=== PATIENT | male | born 1965 | race Caucasian/White ===

== ENCOUNTER 2016-11-24 05:34 | Day surgery (SDC) | payer OTHER ==
[2016-11-24] VITALS (12 sets, daily range): BP systolic 96–131; BP diastolic 62–90; PULSE 98–114; RESP 11–19; O2SAT 92–99
[~2016-11-24] VITALS: Ht 185.4 cm; Wt 96.8 kg
[~2016-11-24 05:34] MED LIST: AMIL5TAB2 PO; FINA5TAB9 PO; HYG25 PO; HYOS0.1216 PO; LIT150 PO; METO25TA6 PO; TAMS0.4C98 PO
[2016-11-24] MEDS ORDERED: Glycopyrrolate 0.2 mg/mL 5 mL Inj ONE (05:35)
[2016-11-24] MEDS ORDERED: Ondansetron 2 mg/mL 2 mL Inj ONE (05:35)
[2016-11-24] MEDS ORDERED: Neostigmine 1 mg/mL 5 mL Inj ONE (05:35)
[2016-11-24] MEDS ORDERED: MetoCLOpramide 5 mg/mL 2 mL Inj ONE (05:35)
[2016-11-24] MEDS ORDERED: Dexamethasone 4 mg/mL Inj ONE (05:35)
[2016-11-24] MEDS: Lactated Ringer's 1,000 ML IV SCH ×3 (05:41→08:41)
[2016-11-24] MEDS ORDERED: KLO1T PO (05:53)
[2016-11-24] MEDS ORDERED: Levofloxacin 500 mg/100 mL D5W IV ONE (06:00)
[2016-11-24] MEDS ORDERED: Lactated Ringer's 1,000 ML IV SCH (07:53)
[2016-11-24] MEDS ORDERED: Lactated Ringer's 500 ML IV PRN (07:53)
--- NOTE | 2016-11-24 07:53 | PCM.HPANE ---
Patient Data Surgeon Admitting Provider: Attending Provider:Adriana Bacon MD Primary Care Physician:Aakash Weinstein DO Other Provider:[facility] Reason for Visit Urinary Retention Ht/WT & BMI Height (Feet): 6 Height (Inches): 1.00 Weight (Kilograms): 96.8 Body Mass Index 28.00 Allergies Coded Allergies: bupropion (Verified Adverse Reaction, Intermediate, made depression sx worse, 08/09/16) Past Anesthesia History Anesthesia History: Denies:: Abnormal Airway, Anesthesia Reactions, Difficult Intubation, Fam Anesthesia Reaction Diabetes History Hx Diabetes?: No MRSA MRSA: No Medications Hypertension Medication: Yes Home Meds Incl Beta Rohan: Yes Date Beta Rohan Taken: Nov 23, 2016 Time Beta Rohan Taken: 1600 Active Scripts Chlorthalidone 25 Mg [id number] Mg PO DAILY #30 TABLET Prov:Madhu Brewster 08/17/16 Amiloride 5 Mg Tablet5 Mg PO DAILYWM #30 TABLET Prov:Madhu Brewster 08/17/16 Metoprolol Tartrate 25 Mg [id number] Mg PO BID #60 TABLET Prov:Madhu Brewster 08/17/16 Reported Medications Clonazepam 1 Mg Tablet1 Mg PO TID PRN For Anxiety Ref 0 11/24/16 Tamsulosin (Flomax)0.4 Mg Capsule0.8 Mg PO DAILY Ref 0 11/21/16 Piney Carbonate 150 Mg [id number] Mg PO BID 11/21/16 Finasteride 5 Mg Tablet5 Mg PO DAILY 30 Days Ref 0 11/21/16 Discontinued Reported Medications Hyoscyamine 0.125 Mg Tablet0.125 Mg PO Q4H PRN For Spasm 11/21/16 Piney Carbonate 300 Mg [id number] Mg PO BID 08/09/16 Quetiapine Fumarate 50 Mg [id number] Mg PO HS 08/09/16 Clonazepam 1 Mg Tablet1 Mg PO DAILY PRN For Anxiety or Agitation 08/09/16 Discontinued Scripts Tamsulosin (Flomax)0.4 Mg Capsule0.4 Mg PO BID #60 CAPSULE Prov:Omar Verma MD 08/25/16 Alprazolam 0.5 Mg Tablet0.5 Mg PO TID PRN For Anxiety or Agitation #30 TABLET Prov:Omar Verma MD 08/25/16 [Artificial Tears] (Tears Naturale Ophth Soln)15 DROP/ML SOLUTION No Conflict Check1-2 Drop RIGHT_EYE Q2H PRN For Eye Irritation 30 Days Prov:Madhu Brewster 08/17/16 Valacyclovir HCl (Valtrex)500 Mg Tablet1,000 Mg PO TID #20 TABLET Prov:Madhu Brewster 08/17/16 History History of ENT Problems?: No HEENT History: Denies:: Abnormal Airway Cataracts Difficult Intubation Dysphagia Glaucoma Hearing Problem Sinus Problem TMJ Hx of Heart Problems?: Yes Cardiovascular History: Positive for:: Hypertension Denies:: AICD Abdominal Aortic Aneurism Atrial Fibrillation Congestive Heart Failure Heart Murmur Irregular Heartbeat Pacemaker Peripheral Vascular Hx of Respiratory Problem?: No Respiratory History: Denies:: Asthma COPD Emphysema Oxygen Administration Pneumonia Tuberculosis Use of C-PAP Machine Use of Inhalers / NEBS Hx Neurologic Problems?: Yes Neurological History: Positive for:: Headaches (past hx of in his 20's) Denies:: CVA Multiple Sclerosis Parkinson's Disease Seizures TIA Other Neurological Pertinent: past hx of [place] palsy right sided- late . Recent left, no current sx Hx of GI Problems?: Yes Gastrointestinal History: Positive for:: Heartburn Denies:: Diverticulitis Gall Bladder Disease Gastroesphageal Reflux Gastrointestinal Bleeding Hepatitis Hiatal Hernia Rectal Bleeding Hx of Problems?: Yes Genitourinary History: Denies:: Kidney Stones Urinary Tract Infection Other Pertinent History: urinary retention - current admission problem- hx of indwelling viera cath-for TURP for prostatic hypertrophy Male Hx: Positive for:: Prostate Problems (current admission problem) Denies:: Scrotal Mass Testicular Surgery Skin History: Denies:: History Skin Disorders? (hx eczema- dryness scalp, facial) Pressure Ulcers Hx Musculoskeletal Problems?: No Musculoskeletal History: Denies:: Back Injury Degenerative Joint Fibromyalgia Joint Replacement Musculoskeletal Trauma Myasthenia Gravis Osteoarthritis Rheumatoid Arthritis Systemic Lupus Hx of Psycho/Social Problems?: Yes Psycho Social History: Positive for:: Anxiety Bipolar Disorder (PTSD...complaining of reflux this morning and reassured he would receive treatment for it intraoperatively) Hx Depression Denies:: Suicide Attempt Hx Surgeries?: Yes (cysto, septoplasty, wisdom teeth) Hx Any Other Health Problems?: Yes Other History: Positive for:: Hospitalization (panic attacks, urinary retention -lymphadenopathy) Denies:: Cancer Thyroid Disease History Blood Transfusions: Positive for:: Accept Blood Products? Denies:: Blood Transfusions Hx Diabetes: No Hx Alcohol Use: NoHx Substance Use: No Smoking Status: Former Smoker Have You Smoked inLast 12 mo: No Stop/Bang S-Snoring: Do You Snore Loudly: No T-Tired: feel tired, fatigued: No O-Obsered: Observed not breath: No P-Blood Pressure: treated: Yes B- Body Mass Index > 35 kg/m2: No A- Age over 50: Yes N- Neck Large Circumference: No G- Gender Male: Yes FLY Total Score: 3 FLY Risk Assessment: High Risk, =/>3 Yes FLY Category 4 OutPt Procedure: Yes Risk Assessment Category Category 1A: Patient has history of documented sleep apnea, and HAS NOT received any narcotic, sedative or anesthesia administration during this stay. Category 1B: Patient has history of documented sleep apnea, and HAS received any narcotic , sedative or anesthesia administration during this stay Category 2: Patient has SUSPECTED Obstructive Sleep Apnea, and HAS received any narcotic , sedative or anesthesia administration during this stay. Category 3: Patient has SUSPECTED Obstructive Sleep Apnea and HAS NOT received narcotic, sedative or anesthesia administration during this stay. Category 4: Outpatient in Procedural Areas with known sleep apnea or who screen positive for High Risk via the STOP/BANG questionnaire. Exam Exam Vital Signs Vital Signs Date Time Temp Pulse Resp B/P Pulse Ox O2 Delivery O2 Flow Rate FiO2 11/24/16 06:15 37.0 98 18 131/90 99 Room Air General Appearance: Alert, Oriented X3, Cooperative, No Acute Distress HEENT/AIRWAY: MP 2 Lungs: Clear to Auscultation, Normal Air Movement Heart: Exam Unremarkable, Regular Rate/Rhythm, No Murmurs/Rubs/Gallops Meds/Labs/Diagnostics Admission Meds Current Medications Lactated Ringer's (Lr) 1,000 ml @ 120 mls/hr Q8H20M IV Last administered on t 05:41; Start 11/24/16 at 05:00; Stop 11/24/16 at 13:19 Plan Impression Patient chart reviewed, patient interviewed and anesthestic plan with risks, benefits, and alternatives discussed, and informed consent obtained. NPO Status: MN ASA Physical Status: ASA3 Severe Disease (bipolar illness) Costa Marino MD Nov 24, 2016 07:53
[2016-11-24] MEDS ORDERED: Phenylephrine 10,000 mCg/mL Inj IVPUSH PRN (07:55)
[2016-11-24] MEDS ORDERED: EPHEDrine Sulfate 50 mg/mL Inj IVPUSH PRN (07:55)
[2016-11-24] MEDS ORDERED: HYDROmorphone 1 mg/mL Inj IVPUSH PRN (07:55)
[2016-11-24] MEDS ORDERED: Dexamethasone 4 mg/mL Inj IVPUSH PRN (07:55)
[2016-11-24] MEDS ORDERED: Ondansetron 2 mg/mL 2 mL Inj IVPUSH PRN (07:55)
[2016-11-24] MEDS ORDERED: MetoCLOpramide 5 mg/mL 2 mL Inj IVPUSH PRN (07:55)
[2016-11-24] MEDS ORDERED: fentaNYL-PF 50 mCg/mL 2 mL Inj IVPUSH PRN (07:55)
[2016-11-24] MEDS ORDERED: HYDROcodone-APAP 5-325 mg Tablet PO PRN (08:55)
--- NOTE | 2016-11-24 09:18 | OP ---
[address] [address] OPERATIVE REPORT PATIENT: MIGUEL FISHER : 1965 MR#: [id number] ADMIT: 11/24/2016 JOB ID: [id number] DATE OF SURGERY: 11/24/2016 PREOPERATIVE DIAGNOSIS(ES): Urinary retention. POSTOPERATIVE DIAGNOSIS(ES): Urinary retention. PROCEDURE PERFORMED: 1. Cystoscopy. 2. Transurethral resection of prostate. SURGEON: Adriana Bacon MD. WORKFORCE PLANNING ANALYST: None. FINDINGS: 1. Bilateral coapted lobes of prostate. 2. Intravesical lobe of prostate. 3. Capacious and trabeculated bladder +3. 4. Bilateral orthotopic ureteral orifices. ANESTHESIA: General. ESTIMATED BLOOD LOSS: Less than 20. DRAINS: An 18-Algerian coude catheter to the bladder. SPECIMENS: Prostate chips. COMPLICATIONS: None. CONDITION: Stable. INDICATION FOR PROCEDURE: The patient is a 51-year-old gentleman with Hebert catheter-dependent urinary retention. He has failed medical management and multiple voiding trials. He now presents for transurethral resection of prostate. DESCRIPTION OF THE PROCEDURE: After informed consent was obtained, the patient was taken to the operating room. A time-out was performed, identifying correct patient, surgical site, and procedure. General anesthesia was smoothly induced. He was given intravenous antibiotics just prior to the start of the procedure. He was placed in the lithotomy position and all pressure points were identified and appropriately padded. His genitals were then prepped and draped in the usual sterile fashion. A 26-Algerian resectoscope was applied to the patient's urethra and advanced to the bladder. The bladder was drained. Both ureteral orifices were seen in orthotopic position. The bladder was systematically inspected. The bladder appeared to be capacious. It was trabeculated in some areas of +3 or more. There were no bladder lesions. The resection commenced in a piecemeal fashion, resecting the right lobe first and then followed by the left lobe of prostate from the bladder neck to proximal to the verumontanum. The intravesical lobe was also resected. The Digital Luxury evacuator was used during the procedure to remove any prostate chips. The ureteral orifices were identified multiple times during the procedure, as well as at the termination of the procedure, and they were left as undisturbed. All the prostate chips were then removed, and hemostasis was excellent. An 18-Algerian coude catheter was placed in the patient's bladder and insufflated with 20 cc of sterile water and set to dependent drainage. Patient was then reversed from general anesthesia and taken to PACU in good and stable condition. [facility]ALTH[facility]ak[facility]
--- NOTE | 2016-11-24 10:09 | PCM.ANEP1 ---
Post Anesthesia Phase 1 PACU Phase 1 Assessment Vital Signs Vital Signs Date Time Temp Pulse Resp B/P Pulse Ox O2 Delivery O2 Flow Rate FiO2 11/24/16 09:50 114 16 112/78 95 Nasal Cannula 2 11/24/16 09:41 37.3 110 11 107/68 92 Nasal Cannula 3 11/24/16 09:35 112 19 114/69 93 Nasal Cannula 3 11/24/16 09:30 113 12 96/62 92 Nasal Cannula 3 11/24/16 09:20 36.8 110 19 108/76 95 Simple Mask 8 11/24/16 09:15 109 14 122/75 96 Simple Mask 8 11/24/16 09:10 110 13 115/69 96 Simple Mask 8 11/24/16 09:05 110 13 125/76 95 Simple Mask 8 11/24/16 09:00 37.1 114 13 125/79 95 Simple Mask 8 11/24/16 06:15 37.0 98 18 131/90 99 Room Air Anesthetic Administered: GA Level of Alertness: Sleepy, easy to arouse SOLITARIO's with Equal Strength: Yes Pain: No Nausea or Vomiting: No Oxygen Delivery: Simple Mask Lungs: Clear to Auscultation, Normal Air Movement Dermatome Level: Full Sensation Costa Marino MD Nov 24, 2016 10:09
--- NOTE | 2016-11-24 10:11 | PCM.ANEP2 ---
Post Anesthesia Evaluation ASA/CMS Post Anesthesia VS in Patient's Normal Range?: Yes Resp Stable; Airway Patent?: Yes CV Function & Hydration Stable: Yes Mental Status Recovered?: Yes Pain control Satisfactory?: Yes N/V Control Satisfactory?: Yes Costa Marino MD Nov 24, 2016 10:11
--- NOTE | 2016-11-27 16:26 | PATH ---
SURGICAL PATHOLOGY Attending Physician:Adriana Bacon, CASE STATUS: Signed Out PATIENT NAME: MIGUEL FISHER PID: [id number] : 1965 DATE COLLECTED:11/24/2016 15:04 SPECIMEN: Prostate, Chips CLINICAL HISTORY: URINARY RETENTION 1). RESECTED PROSTATE FINAL DIAGNOSIS: 1.PROSTATE, TUR FRAGMENTS: BENIGN PROSTATE TISSUE WITH STROMAL HYPERPLASIA. NO EVIDENCE OF MALIGNANCY. ICD10 CODE N40.1 GROSS DESCRIPTION: The specimen is received in formalin, labeled with the patient's name, sublabeled as resected prostate and consists of multiple fragments of strong-pink rubbery prostatic tissue (7.3 g, 5.5 x 4.3 x 1.8 cm in aggregate). Section code: (A-E) prostatic tissue. Specimen entirely submitted. 11/24/16 JM lung MICRO DESCRIPTION: See diagnosis. ICD-9 CODES: CPT CODES: 1: 00570 Electronically Signed Out Tanika Dupont MD [facility] Pathology [facility] [address], [place] [address] Technical component performed at [facility], [address], [place], [address]
== END 2016-11-24 23:59 | disposition home or self-care (01) ==
LOC: SAS 05:34
PROVIDERS: ATTEND Urology
DX: N40.1 Benign prostatic hyperplasia with lower urinary tract symptoms (principal); R33.8 Other retention of urine; N32.89 Other specified disorders of bladder; I10 Essential (primary) hypertension; F41.9 Anxiety disorder, unspecified; F32.9 Major depressive disorder, single episode, unspecified; Z87.891 Personal history of nicotine dependence
CPT/HCPCS: 52601; 88305; J1100; J2250; J2405; J2710; J2765; J7120

== ENCOUNTER 2016-11-26 13:28 | Emergency (ER) | payer OTHER ==
[~2016-11-26] VITALS: Ht 185.4 cm; Wt 95.0 kg
[~2016-11-26 13:28] MED LIST changes: -HYOS0.1216 PO; +KLO1T PO
[2016-11-26 13:29] VITALS: BP 113/81; PULSE 100; RESP 16; O2SAT 95
--- NOTE | 2016-11-26 13:31 | ED.REPORT ---
HPI-Chest Pain 40 and Over Date of Service Nov 26, 2016 ED Provider: The patient is a 51 year old male with history of acute kidney injury, anxiety, depression, PTSD, and bipolar who presents to the emergency department by EMS for chest pain that began earlier today earlier today. The pain is located to the right side of his chest. He describes the pain as "sharp." His pain is worse with lying flat and improved with standing. He noticed some shortness of breath. Medics administered aspirin and Fentanyl en route. He was recently admitted for a surgery, was discharged on Sunday but has been unable to pecan picker his prescriptions. Nursing Notes Stated Complaint: CHEST PAIN Nursing Notes Reviewed: Yes Allergies: Coded Allergies: bupropion (Verified Adverse Reaction, Intermediate, made depression sx worse, 08/09/16) Scheduled Amiloride (Amiloride) 5 Mg Tablet 5 MG PO DAILYWM Chlorthalidone (Chlorthalidone) 25 Mg Tablet 25 MG PO DAILY Finasteride (Finasteride) 5 Mg Tablet 5 MG PO DAILY [place]wood Carbonate (Ledgewood Carbonate) 150 Mg Capsule 150 MG PO BID Metoprolol Tartrate (Metoprolol Tartrate) 25 Mg Tablet 25 MG PO BID Tamsulosin (Flomax) 0.4 Mg Capsule 0.8 MG PO DAILY Scheduled PRN Clonazepam (Clonazepam) 1 Mg Tablet 1 MG PO TID PRN PRN For Anxiety General Time Seen by MD: 13:30 Chief Complaint Chest pain Hx Obtained From: Patient, EMS Arrived By: Ambulance Sudden in Onset?: Yes Onset Occurred: 5 - 8 hours ago Symptom Duration: Since onset Location: : Chest right Quality: Painful, Sharp Radiation: : Does not radiate Migration/Movement: Reports: None Severity: Current: Mild Severity: Maximum: Moderate Recent Healthcare: Recent doctor visit, Recent hospitalization, Previous surgery Similar Sx Previous: No Past Medical History Past Medical History Anxiety, depression, PTSD, Bipolar Clostridium difficile colitis 10/2014 Acute kidney injury Past Surgical History Denies Smoking History Former Smoker Social History Currently living in a transitional home Alcohol Use: Denies alcohol use Drug Use: Denies drug use Ambulatory Status Independent Review of Systems Respiratory: Reports: Shortness of breath Cardiovascular: Reports: Chest pain Complete sys rev & neg: except as marked. Physical Exam Initial Vital Signs Vital Signs (First) Date Time Temp Pulse Resp B/P Pulse Ox O2 Delivery O2 Flow Rate FiO2 11/26/16 13:29 37.1 100 16 113/81 95 Room Air Initial VS: Reviewed Head / Eyes: Atraumatic, Normocephalic, PERRL ENT: Mucous membranes moist, Conjunctiva normal, No scleral icterus Neck: Supple, Non-tender, Full range of motion Lymphatic: No lymphadenopathy Extremities: Vascular intact, Neuro intact, No swelling, No tenderness Skin: Warm, Dry, No cyanosis Neurologic: Alert, Oriented, Nonfocal Psychiatric: Mood/affect normal, Behavior normal, Normal thought content General/Constitutional: Awake, Alert, No acute distress, Well appearing Respiratory / Chest: Atraumatic, Breath sounds NL, Breath sounds = bilat, No respiratory distress, No rales, No rhonchi, No wheezing, No retractions Mild chest wall tenderness Cardiovascular: Heart rate NL, Regular rhythm, Heart sounds NL, No murmurs, No rubs, Peripheral circulation NL, Pulses = bilaterally, No gross BP differential Abdomen: Atraumatic, Soft, Non-tender, McBurney's non-tender, No guarding, No rebound, BS normoactive, No distention, No hernia, No palpable mass Lower Extremity / Pelvis / MS: Neurologic intact, Vascular intact No calf swelling or tenderness Male Genitourinary: Atraumatic Hebert catheter in place with clear yellow urine Interpretation & Diagnostics Lab Results Interpretation Result Diagram: 11/26/16 1330 11/26/16 1330 Test 11/26/16 13:30 White Blood Count 15.4th/mm3 (3.8-10.1) Red Blood Count 5.04mil/mm3 (4.40-5.80) Hemoglobin 14.7g/dL (13.8-17.2) Hematocrit 43.7% (41.0-50.0) Mean Corpuscular Volume 86.7fL (81-100) Mean Corpuscular Hemoglobin 29.2pg (27.0-35.0) Mean Corpuscular Hemoglobin Concent 33.6% (32.0-37.0) Red Cell Distribution Width 13.9% (12.3-15.4) Platelet Count 349bil/L (150-400) Neutrophils (%) (Auto) 71.0% (40-74) Lymphocytes (%) (Auto) 15.5% (14-46) Monocytes (%) (Auto) 11.1% (4-12) Eosinophils (%) (Auto) 1.6% (0-5) Basophils (%) (Auto) 0.3% (0-3) D-Dimer 1.9mg/L (<0.50) Sodium Level 138mEq/L (134-144) Potassium Level 3.2mEq/L (3.5-5.2) Chloride Level 91mEq/L (97-108) Carbon Dioxide Level 32mmol/L (18-29) Blood Urea Nitrogen 17mg/dL (6-24) Creatinine 0.96mg/dL (0.76-1.27) Estimat Glomerular Filtration Rate 87mL/min (>59) Glucose Level 123mg/dL (60-99) Calcium Level 12.2mg/dL (8.5-10.1) Magnesium Level 1.3mg/dL (1.6-2.6) Total Bilirubin 0.6mg/dL (0.0-1.2) Aspartate Amino Transf (AST/SGOT) 26U/L (0-50) Alanine Aminotransferase (ALT/SGPT) 18U/L (0-44) Alkaline Phosphatase 75U/L (25-150) Troponin T < 0.010ug/L (0.0-0.011) Total Protein 7.6g/dL (6.4-8.4) Albumin 4.3g/dL (3.4-5.0) ECG Interpretation ECG Interpretation: Sinus rhythm with a rate of 98 bpm LAD Normal intervals No ST segment elevation No T wave abnormalities Poor R wave progression When compared to prior EKG dated 08/22/2016 his EKG is unchanged Time: 14:07 Interpreted by: ED physician X-Ray Chest Interpretation Chest Xray Interpretation: IMPRESSION: No acute cardiopulmonary disease. Dictated by: Richard Hemphill M.D. on 11/26/2016 at 13:57 Interpretation / Wet Read by: Interpret - Radiologist Re-Eval/Medical Decision Med Decision/Clinical Course The patient is a 51 year old male with history of acute kidney injury, anxiety, depression, PTSD, and bipolar who presents to the emergency department by EMS for chest pain that began earlier today earlier today. The pain is located to the right side of his chest. He describes the pain as "sharp." His pain is worse with lying flat and improved with standing. She had numerous department is afebrile stable vital signs in no apparent distress. Chest pain is reproducible with palpation of the anterior chest wall. CXR: Obtained, reviewed and interpreted by myself shows no evidence of acute infiltrates, effusions or pneumothorax. Cardiac and mediastinal silhouette normal. No bony or soft tissue abnormalities. EKG was obtained and interpreted by myself as documented above. Laboratory studies were notable as below: leukocytosis of 15.4, hct 43.7, d-dimer 1.9, mild hypokalemia, mild hypomagnesia , electrolytes other unremarkable, troponin negative. Overall presentation most suggestive of musculoskeletal etiology. Given the patient's recent hospitalization I did consider pulmonary embolism and therefore obtained a d-dimer which was positive, therefore CT angiogram was ordered. I considered acute coronary syndrome however his initial screening EKG demonstrates no acute ischemic changes and initial troponin is negative. I considered pericarditis however his pain is more associated with bending/ twisting then it is truly positional. He demonstrates no characteristic EKG changes suggestive of pericarditis and this seems relatively unlikely. Patient signed out to Dr. Valerio Beach pending CT angiography. Source of Hx: Old records Counseled Regarding: Diagnosis, Lab results Discharge & Departure Shift Change Sign-Out Patient Care Transferred: Yes Discussed Complaint(s): Yes Laboratory Evaluation: Lab evaluation discussed Imaging Studies: Ordered, not yet done Response to Therapy: Improved, Discussed Primary Impression: Chest pain Chest pain type: unspecified Qualified Code: R07.9 - Chest pain, unspecified Additional Impressions: Shortness of breath Tachycardia Elevated d-dimer Leukocytosis Leukocytosis type: unspecified Qualified Code: D72.829 - Elevated white blood cell count, unspecified Discharge Condition All VS Reviewed: Yes Condition: Stable Referrals: Aakash Weinstein DO (PCP) Care Transferred to: Dr. Beach Care Transferred at: 14:40 Scribe Attestation Portions of this note were transcribed by iD Doyle. I, Dr. Mayfield personally performed the history, physical exam and medical decision-making; I reviewed and confirmed the accuracy of the information in the transcribed note. Signed by: Dian Cole, 11/25/2015 and [id number]. copies to: Aakash Weinstein Beck O MD Nov 26, 2016 13:31 Di Doyle Nov 26, 2016 13:36
[2016-11-26 13:42] LABS: BASOPHILS % (AUTO) 0.3 % (0-3); EOSINOPHILS % (AUTO) 1.6 % (0-5); MONOCYTES % (AUTO) 11.1 % (4-12); Mean Corpuscular Hemoglobin 29.2 pg (27.0-35.0); Mean Corpuscular Volume 86.7 fL (81-100); Platelet Count 349 bil/L (150-400)
--- NOTE | 2016-11-26 13:58 | DRSVH ---
PROCEDURE: X-RAY CHEST ONE VIEW, PORTABLE ([id number]) INDICATIONS: 51 year-old male with chest pain. TECHNIQUE: One view of the chest was acquired. COMPARISON: [facility], CR, XR CHEST 1VW (PORTABLE), 08/23/2016, 12:06. [facility], [facility], XR CHEST 1VW (PORTABLE), 08/09/2016, 11:35. [facility], CR, XR ABD ACUTE S ERIES 3VW, 08/08/2016, 14:50. FINDINGS: Surgical changes and devices: None. Lungs and pleura: No pleural effusions or pneumothorax. Lungs are clear. Mediastinum: Mediastinal contours appear normal. Heart size is normal. Bones and chest wall: No suspicious bony lesions. Overlying soft tissues appear unremarkable. IMPRESSION: No acute cardiopulmonary disease. Dictated by: Richard Hemphill M.D. on 11/26/2016 at 13:57 Approved by: Richard Hemphill M.D. on 11/26/2016 at 13:57
[2016-11-26 14:14] LABS: TROPONIN T < 0.010 ug/L (0.0-0.011)
[2016-11-26 14:17] LABS: Magnesium 1.3 mg/dL (1.6-2.6)
--- NOTE | 2016-11-26 15:13 | DRSVH ---
PROCEDURE: CT ANGIO CHEST PULMONARY EMBOLISM ([id number]) INDICATIONS: 51 year-old male with shortness of breath and elevated d-dimer level. TECHNIQUE: After the administration of intravenous contrast, 2 mm thick sections acquired from the pulmonary api bret to the posterior costophrenic angles. 3-dimensional maximum intensity projection (MIP) coronal a nd sagittal reformats were then acquired through the thorax. For radiation dose reduction, the follo wing was used: automated exposure control, adjustment of mA and/or kV according to patient size. COMPARISON: [facility], CR, XR CHEST 1VW (PORTABLE), 11/26/2016, 13:41. FINDINGS: Image quality: Excellent. Pulmonary arteries: Pulmonary arteries are normal in size, and demonstrate no intraluminal filling d efects to suggest central pulmonary embolism. Lungs and pleura: There is localized groundglass and clustered micronodular opacities in the posterio r right upper and lower lobes. Left lung appears clear. No pleural effusions or pneumothorax. Centra l and peripheral airways are patent. Mediastinum: Heart size is normal, without pericardial effusion. No mediastinal or hilar adenopathy . Thoracic aorta is normal in caliber and enhancement. Esophagus is normal in caliber, a small to m oderate hiatal hernia. Bones and chest wall: No suspicious bony lesions. Ribs and thoracic spine appear intact throughout. Thyroid gland is normal in size. No axillary or supraclavicular adenopathy. Abdomen: Visualized upper abdominal solid organs appear normal in the early arterial phase of enhanc ement. IMPRESSION: 1. No evidence for central pulmonary embolism. 2. Findings suspicious for posterior right lung aspiration or early bronchopneumonia. 3. Small to moderate retrocardiac hiatal hernia. Dictated by: Richard Hemphill M.D. on 11/26/2016 at 15:06 Approved by: Richard Hemphill M.D. on 11/26/2016 at 15:12
[2016-11-26 15:15] VITALS: BP 128/83; PULSE 107; RESP 15; O2SAT 96
[2016-11-26] MEDS ORDERED: levoFLOXacin 750 mg Tablet PO ONE (15:35)
[2016-11-26] MEDS ORDERED: Alum-Mag Hydrox-Simeth 30 mL Suspension PO ONE (15:35)
[2016-11-26] MEDS ORDERED: LEVO500T16 PO (16:12)
[2016-11-26 17:12] VITALS: BP 126/87; PULSE 110; RESP 22; O2SAT 97
[2016-11-26] MEDS ORDERED: Ondansetron 8 mg ODT Tablet PO ONE (17:35)
[2016-11-26 18:16] VITALS: BP 113/91; PULSE 104; RESP 12; O2SAT 97
== END 2016-11-26 18:11 | disposition home or self-care (01) ==
LOC: SED 13:28
DX: R00.0 Tachycardia, unspecified (principal); R06.02 Shortness of breath; D72.829 Elevated white blood cell count, unspecified; R79.1 Abnormal coagulation profile; Z87.891 Personal history of nicotine dependence
CPT/HCPCS: 36415; 71010; 71275; 80053; 82948; 83735; 84484; 85025; 85379; 93005; 99285; Q9967